=== PATIENT | male | born 1980 | race Hispanic/Latino ===

== ENCOUNTER 2024-07-26 00:09 | Inpatient (IN) | payer MEDICAID ==
[~2024-07-26] VITALS: Ht 170.2 cm; Wt 121.1 kg
[2024-07-26 01:50] LABS: HEMATOCRIT 43.2 % (42.0-52.0); HEMOGLOBIN 15.5 g/dl (13.5-17.5); MEAN CORPUSCULAR HEMOGLOBIN 30.2 pg (27.0-33.0); MEAN CORPUSCULAR HGB CONC 35.9 g/dl (32.0-36.5); MEAN CORPUSCULAR VOLUME 84.2 fl (80.0-96.0); PLATELET COUNT, AUTOMATED 176 10^3/uL (150-450); RED BLOOD COUNT 5.13 10^6/uL (4.30-6.10); WHITE BLOOD COUNT 8.9 10^3/uL (4.0-10.0)
[2024-07-26 02:02] LABS: BARBITURATES URINE NEGATIVE (NEGATIVE); BENZODIAZEPINES URINE NEGATIVE (NEGATIVE); COCAINE METABOLITE URINE NEGATIVE (NEGATIVE); METHADONE URINE NEGATIVE (NEGATIVE); OPIATES URINE NEGATIVE (NEGATIVE); PHENCYCLIDINE URINE NEGATIVE (NEGATIVE)
[2024-07-26 02:17] LABS: ETHYL ALCOHOL (ETHANOL) < 0.003 % (0.000-0.010)
[2024-07-26 02:19] LABS: ALKALINE PHOSPHATASE 69 U/L (46-116); ALT/SGPT 58 U/L (7.0-40); AST/SGOT 95 U/L (<34); BILIRUBIN,DIRECT 0.9 MG/DL (<0.4); BILIRUBIN,TOTAL 2.3 MG/DL (0.3-1.2); BLOOD UREA NITROGEN 11 MG/DL (9-23); CALCIUM LEVEL 9.1 MG/DL (8.5-10.1); CARBON DIOXIDE LEVEL 25 MMOL/L (20-31); CHLORIDE LEVEL 101 MMOL/L (98-107); CREATININE FOR GFR 0.74 MG/DL (0.70-1.30); GLOMERULAR FILTRATION RATE > 60.0 (>60); GLUCOSE, FASTING 106 MG/DL (60-100); POTASSIUM SERUM 3.6 MMOL/L (3.5-5.1); SALICYLATE LEVEL < 3.0 MG/DL (<30); SODIUM LEVEL 133 MMOL/L (136-145); TOTAL PROTEIN 7.3 G/DL (5.7-8.2)
[2024-07-26 02:21] LABS: THYROID STIMULATING HORMONE 2.799 uIU/ML (0.55-4.78)
[2024-07-26 02:24] LABS: AMPHETAMINES LEVEL URINE POSITIVE (NEGATIVE); CANNABINOIDS URINE POSITIVE (NEGATIVE)
[2024-07-26] MEDS: IBUPROFEN 600MG TAB PO ONE (03:37)
[2024-07-26] MEDS ORDERED: MED REC CURRENTLY UNOBTAINABLE XX SCH (07:50)
[2024-07-26] MEDS: LORazepam 2 MG TAB PO PRN (13:49)
[2024-07-26] MEDS ORDERED: TRAZ1TAB12 PO (15:06)
[2024-07-26] MEDS ORDERED: PRAZ5CAP PO (15:06)
[2024-07-26] MEDS ORDERED: D31000CA4 PO (15:06)
[2024-07-26] MEDS ORDERED: NEUR800T PO (15:06)
[2024-07-26] MEDS ORDERED: DIVA500T94 PO (15:06)
[2024-07-26] MEDS ORDERED: ZYPR5TAB2 PO (15:06)
[2024-07-26] MEDS ORDERED: SERT25TA85 PO (15:08)
[2024-07-26] MEDS ORDERED: SERT50TA29 PO (15:10)
[2024-07-26] MEDS ORDERED: MED NOTE (15:28)
[2024-07-26] MEDS ORDERED: HOME MED LIST COMPLETE! XX SCH (15:35)
[2024-07-26] MEDS ORDERED: GABAPENTIN 400MG CAP PO SCH (16:00)
[2024-07-26] MEDS: IBUPROFEN 800 MG TAB PO STA (20:17)
[2024-07-26] MEDS ORDERED: PRAZOSIN 1 MG CAP PO SCH (21:00)
[2024-07-26] MEDS ORDERED: OLANZapine 5 MG TAB PO SCH (21:00)
[2024-07-26] MEDS ORDERED: traZODone 100 MG TAB PO SCH (21:00)
[2024-07-27] MEDS ORDERED: SERTRALINE HCL 25 MG TABLET PO SCH (09:00)
[2024-07-27] MEDS: LORazepam 2 MG TAB PO PRN (12:31)
[2024-07-27] MEDS ORDERED: MAALOX 30 ML SUSP *UDC PO PRN (14:05)
[2024-07-27] MEDS ORDERED: MOM 30ML SUSPENSION UDC PO PRN (14:05)
[2024-07-27] MEDS ORDERED: ACETAMINOPHEN TAB 650MG DOSE (2X325MG) PO PRN (14:05)
[2024-07-27 15:40] VITALS: BP 121/62; TEMP 97.8; O2SAT 98
[2024-07-27] MEDS: IBUPROFEN 400MG TAB PO PRN (22:29)
[2024-07-27] MEDS: traZODone 50 MG TAB PO PRN (22:32)
[2024-07-28 06:32] VITALS: BP 135/73; TEMP 98.2; O2SAT 97
[2024-07-28] MEDS ORDERED: ALBUTEROL 90 MCG/ACT 8GM HFA INHALER INH PRN (11:45)
[2024-07-28] MEDS: NICOTINE 14 MG/24 HR TRANSDERMAL TD SCH (12:19)
[2024-07-28] MEDS: diphenhydrAMINE 25MG CAP PO PRN (12:20)
[2024-07-28] MEDS: SERTRALINE 100 MG TAB PO SCH (14:06)
[2024-07-28] MEDS: GABAPENTIN 400MG CAP PO SCH (15:03)
[2024-07-28] MEDS: OLANZapine ORAL DISINTEGRATING TAB 5MG PO SCH (20:56)
[2024-07-28] MEDS: traZODone 100 MG TAB PO SCH (20:56)
[2024-07-28] MEDS: DIVALPROEX 500 MG TAB PO SCH (20:57)
[2024-07-28] MEDS: PRAZOSIN 1 MG CAP PO SCH (20:58)
[2024-07-29 08:01] LABS: CHOLESTEROL RISK RATIO 3.91 (<5); HDL CHOLESTEROL 30.4 MG/DL (>40); NON-HDL-C 88.6 MG/DL
[2024-07-29 15:36] VITALS: BP 122/65; TEMP 97.5; O2SAT 97
[2024-07-30 06:20] VITALS: BP 108/61; TEMP 97.5; O2SAT 98
[2024-07-30 15:35] VITALS: BP 139/71; TEMP 97.6; O2SAT 96
[2024-07-31] MEDS: PROPRANOLOL 10 MG TAB PO PRN (19:00)
[2024-08-01 06:08] VITALS: BP 102/58; TEMP 97.3; O2SAT 96
[2024-08-02] MEDS: SERTRALINE HCL 50 MG TAB PO SCH (10:22)
[2024-08-02] MEDS: GABAPENTIN 300 MG CAP PO SCH (10:23)
[2024-08-02 16:09] VITALS: BP 126/81; TEMP 97.4; O2SAT 96
[2024-08-03 06:16] VITALS: BP 100/65; TEMP 97.1; O2SAT 99
[2024-08-03] MEDS: NICOTINE POLACRILEX 2 MG GUM PO PRN (12:39)
[2024-08-03 15:47] VITALS: BP 138/76; TEMP 97.3; O2SAT 96
[2024-08-04 06:10] VITALS: BP 102/53; TEMP 97.6; O2SAT 94
[2024-08-04 16:56] VITALS: BP 120/61; TEMP 97.1; O2SAT 97
[2024-08-05 06:25] VITALS: BP 126/55; TEMP 97.1; O2SAT 99
[2024-08-05 18:19] VITALS: BP 120/72; TEMP 97.2; O2SAT 98
[2024-08-06 05:58] VITALS: BP 151/79; TEMP 96.5; O2SAT 100
[2024-08-08 06:10] VITALS: BP 93/65; TEMP 96.5; O2SAT 99
[2024-08-08 17:24] VITALS: BP 119/81; TEMP 96.9; O2SAT 96
[2024-08-09] MEDS: hydrOXYzine 50 MG TAB PO SCH (20:08)
[2024-08-10] MEDS: traZODone 100 MG TAB PO SCH (21:35)
[2024-08-11 20:09] VITALS: BP 124/59
[2024-08-12] MEDS ORDERED: DEPA1TAB3 PO (10:05)
[2024-08-12] MEDS ORDERED: VENTAER INH (10:05)
[2024-08-12] MEDS ORDERED: TRAZ-257 PO (10:05)
[2024-08-12] MEDS ORDERED: PROP10TA56 PO (10:05)
[2024-08-12] MEDS ORDERED: GABA-1490 PO (10:05)
[2024-08-12] MEDS ORDERED: SERT50TA29 PO (10:05)
[2024-08-12] MEDS ORDERED: OLAN1TAB20 PO (10:05)
[2024-08-12] MEDS ORDERED: PRAZ1CAP PO (10:05)
== END 2024-08-12 12:54 | disposition home or self-care (01) | DRG 753 ==
LOC: M ED 00:09 → M ED INP 07-27 14:04 → M PSY 07-27 15:27
PROVIDERS: ADMIT Psychiatry & Neurology Child & Adolescent Psychiatry; ATTEND Psychiatry & Neurology Psychiatry
DX: F31.9 Bipolar disorder, unspecified (principal); U07.1 COVID-19; R45.851 Suicidal ideations; E87.1 Hypo-osmolality and hyponatremia; F43.10 Post-traumatic stress disorder, unspecified; F41.9 Anxiety disorder, unspecified; F10.10 Alcohol abuse, uncomplicated; F15.90 Other stimulant use, unspecified, uncomplicated; F12.90 Cannabis use, unspecified, uncomplicated; Z79.899 Other long term (current) drug therapy; F17.200 Nicotine dependence, unspecified, uncomplicated; E55.9 Vitamin D deficiency, unspecified; Z59.00 Homelessness unspecified